=== PATIENT | male | born 1980 | race Caucasian/White ===

== ENCOUNTER 2019-07-10 17:31 | Emergency (ER) | payer BC, SELFPAY ==
--- NOTE | ~2019-07-10 | CT_ITS ---
EXAMINATION: CT abdomen pelvis w con INDICATION: Left lower quadrant pain TECHNIQUE: Computed tomographic images of the abdomen and pelvis were obtained after the administrati on of 100 cc of Omnipaque 350 intravenous contrast. The dose-length product (DLP) was 581.86 mGy-cm. Automated exposure control and iterative reconstruction technique were employed. COMPARISON: 03/26/2019 FINDINGS: The lung bases are clear. The heart size is normal. There is a small sliding hiatal hernia. There has been interval cholecystectomy. A new 1.2 cm area of low attenuation in the liver adjacent to the gallbladder fossa likely relates to cholecystectomy. The liver is otherwise normal. The spleen , pancreas, and adrenal glands are normal. The kidneys are unremarkable. No pathologically enlarged a bdominal or pelvic lymph nodes are identified. The appendix is normal. There is no free intraperitone al gas. There appears to be mild circumferential wall thickening of the duodenum. A focally dilated l oop of proximal jejunum measures up to 3.3 cm. There is mild lumbar spondylosis. IMPRESSION: 1. Apparent mild circumferential wall thickening of the duodenum and mild focal dilation of the proxi mal jejunum of unclear significance. Findings could reflect enteritis. Reviewed, dictated and finalized at location A. IMPRESSION: 1. Apparent mild circumferential wall thickening of the duodenum and mild focal dilation of the proximal jejunum of unclear significance. Findings could refle ct enteritis.
[2019-07-10 17:52] VITALS: BP 123/96; PULSE 90; RESP 16; TEMP 37.1; O2SAT 99
[2019-07-10 17:53] VITALS: O2SAT 9
[2019-07-10 19:12] VITALS: BP 130/60; PULSE 85; RESP 18; O2SAT 99
--- NOTE | 2019-07-10 19:17 | ED.NAVMDI ---
HPI - Nausea/Vomiting/Diarrhea General Chief complaint: Nausea/Vomiting/Diarrhea Stated complaint: vomiting Time Seen by Provider: 07/10/19 19:18 Source: patient Mode of arrival: ambulatory Limitations: no limitations History of Present Illness HPI Narrative: A 38 y/o male presents to the ED with c/o N/V/D since 1:30 AM yesterday. Pt states that he has had 30 episodes of vomiting and a couple episodes of diarrhea in the past 24 hours. Pt notes that he has a PMHx of hemorrhoids and he noticed some blood in his stool this morning. Pt c/o ABD cramping but states that it feels different than the pain he typically experiences with his hemorrhoids. He reports a PSHx of a cholecystectomy, but denies CP, alcohol use, sick contacts, recent foreign travel, and a PMHx of diverticulitis or diverticulosis. Pertinent past history: other (hemorrhoid) Onset (ago): day(s) (1) Quality: cramping Related Data Home Medications Medication Instructions Recorded Confirmed atorvastatin 80 mg PO HS 03/26/19 cyclobenzaprine 10 mg PO HS PRN 03/26/19 diclofenac sodium 75 mg PO BID 03/26/19 ergocalciferol (vitamin D2) 1,250 unit PO DAILY 03/26/19 gabapentin 300 mg PO TID 03/26/19 hydrocodone-acetaminophen 1 tablet PO Q6H PRN 03/26/19 hydrocortisone [Proctozone-HC] 1 applic [place] DAILY PRN 03/26/19 hydrocortisone acetate 25 mg [place] BID 03/26/19 icosapent ethyl [Vascepa] 2 g PO BID 03/26/19 lidocaine 1 applic TOPICAL BID 03/26/19 omeprazole 40 mg PO BID 03/26/19 promethazine 25 mg PO Q6H PRN 03/26/19 ranitidine HCl 300 mg PO HS 03/26/19 triamcinolone acetonide 1 applic TOPICAL BID 03/26/19 venlafaxine 37.5 mg PO DAILY 03/26/19 Allergies Allergy/AdvReac Type Severity Reaction Status Date / Time bee venom protein (honey bee) Allergy Severe Anaphylactic Verified 09/22/18 12:58 Shock Review of Systems Review of Systems: All systems reviewed & are unremarkable except as noted in HPI and below Cardiovascular: Cardiovascular: Denies chest pain Gastrointestinal: Gastrointestinal: Reports diarrhea, Reports nausea and Reports vomiting Comments: Reports: blood in stool, ABD cramping PMFSH Past Medical History Medical History (Updated 07/10/19 @ 22:07 by Rommel Yeboah MD) Back pain GERD (gastroesophageal reflux disease) Hemorrhoid History of kidney stones Hypercholesteremia Pinched nerve S5 to toes Surgical History Surgical History History of cholecystectomy Social History Social History Social History: 1 cartridge/day = 1 PPD Smoking status: Current every day smoker Tobacco type: e-cigarettes Alcohol intake: never Gender identity (if verbalized by the patient): Male Comments PCP: Dr. Avila Exam Narrative: Exam Narrative: GENERAL: Uncomfortable-appearing, well-nourished, and in no acute distress. HEAD: Normocephalic, atraumatic. ENT: Mucous membranes moist. CHEST: Clear to auscultation. No respiratory distress. HEART: Regular rate and rhythm. Normal peripheral pulses. ABDOMEN: Soft, moderate left lower quadrant tenderness and mild left upper quadrant tenderness without guarding, nondistended, normal active bowel sounds. 2 external hemorrhoids on rectal exam 1 with recent bleeding. No thrombosis. EXTREMITIES: Normal range of motion. No edema. NEURO: Alert and oriented x3. PSYCH: Normal mood and affect. Course Course Emergency Course: Patient informed of results. Feels better after fluids and antinausea medication. Discussed supportive therapy for home and patient verbalized understanding. Vital Signs Vital signs: Vital Signs Temperature 98.7 F 07/10/19 17:52 Pulse Rate 90 07/10/19 17:52 Respiratory Rate 16 07/10/19 17:52 Blood Pressure 123/96 H 07/10/19 17:52 Pulse Oximetry 99 07/10/19 17:52 Temperature 98.7 F 07/10/19 17:52 Pulse Rate 84 07/10/19 21:42 Respiratory Rate 1
[2019-07-10] MEDS: SODIUM CHLORIDE 0.9% IV 1,000 ML 999 ML IV CONT (19:28)
[2019-07-10] MEDS: MORPHINE SULFATE 4 MG/ML INJ IV PUSH (19:29)
[2019-07-10] MEDS: ONDANSETRON INJ 4 MG/2 ML VIAL IV PUSH (19:29)
[2019-07-10 19:34] LABS: Basophils Percent Auto 0.3 % (0.2-1.2); Hematocrit 52.2 % (42.0-52.0); Hemoglobin 17.8 g/dL (14.0-18.0); Immature Granulocyte Absolute 0.04 K/mm3 (0.00-0.031); Immature Granulocyte Percent A 0.3 % (0-0.5); Lymphocytes Absolute Auto 1.25 K/mm3 (0.9-3.2); Lymphocytes Percent Auto 9.3 % (18.3-44.2); Mean Corpuscular HGB Conc 34.1 g/dl (32-36); Mean Corpuscular Hemoglobin 31.1 pg (26-34); Mean Corpuscular Volume 91.3 fl (80-100); Mean Platelet Volume 11.1 fl (7.4-10.4); Monocytes Absolute Auto 0.5 K/mm3 (0.1-0.6); Monocytes Percent Auto 3.6 % (2.6-8.5); Neutrophils Absolute Auto 11.6 K/mm3 (1.3-6.7); Neutrophils Percent Auto 86.5 % (45.5-73.1); Platelet Count Result 347 k/mm3 (150-375); Red Blood Count 5.72 M/mm3 (4.6-6.20); Red Cell Distribution Width 12.6 % (11.5-14.5); White Blood Count 13.4 K/mm3 (4.5-10.0)
[2019-07-10 20:12] LABS: Alanine Aminotransferase 27 U/L (4-50); Albumin Level 4.9 g/dL (3.5-5.1); Alkaline Phosphatase 85 U/L (38-126); Aspartate Amino Transferase 25 U/L (17-59); Bilirubin,Total 0.8 mg/dL (0.2-1.3); Blood Urea Nitrogen 14 mg/dL (9-20); Calcium 9.5 mg/dL (8.4-10.2); Carbon Dioxide 27 mmol/L (22-30); Chloride 103 mmol/L (98-107); Estimated Glomerular Filt Rate > 60; Glucose 110 mg/dL (75-110); Lipase 41 U/L (23-300); Potassium 3.6 mmol/L (3.4-5.0); Sodium 137 mmol/L (137-145)
[2019-07-10 20:29] VITALS: BP 155/86; PULSE 86; RESP 18; O2SAT 97
[2019-07-10 21:42] VITALS: BP 153/91; PULSE 84; RESP 18; O2SAT 98
[2019-07-10 22:31] VITALS: BP 128/72; PULSE 82; RESP 18; TEMP 36.7; O2SAT 97
== END 2019-07-10 22:33 | disposition home or self-care (01) ==
PROVIDERS: Emergency Provider Emergency Medicine; PCP Family Medicine
DX: K52.9 Noninfective gastroenteritis and colitis, unspecified (principal); K64.4 Residual hemorrhoidal skin tags; E78.5 Hyperlipidemia, unspecified; Z87.442 Personal history of urinary calculi
CPT/HCPCS: 36415; 74177; 80053; 83690; 85025; 96361; 96374; 96375; 99284; J2270; J2405; J7030; Q9967

== ENCOUNTER 2019-07-12 11:58 | Emergency (ER) | payer BC, SELFPAY ==
--- NOTE | ~2019-07-12 | CT_ITS ---
EXAMINATION: CT abdomen pelvis w con EXAM DATE: 07/12/2019 13:58 INDICATION: Nausea vomiting diarrhea. Abdominal pain. TECHNIQUE: Spiral CT of the abdomen and pelvis was performed following intravenous injection of 100 m L Omnipaque 350. Axial, coronal and sagittal images were reviewed. The dose-length product (DLP) fo r this examination was 640.92 mGy-cm. The exposure was tailored according to patient size (auto mA e xposure control), and iterative reconstruction (ASIR) was used as additional dose reduction technique . There is no prior study for comparison. FINDINGS: The liver, spleen, adrenal glands and pancreas are unremarkable. Gallbladder is unremarkab le. No biliary obstruction. Portal and splenic veins are patent. Kidneys enhance symmetrically. T here is no hydronephrosis. The prostate is unremarkable. The bladder is unremarkable. There is no retroperitoneal or pelvic lymphadenopathy. The appendix is normal. The stomach and small bowel are unremarkable. There is mild scattered coloni c diverticulosis. There is no adjacent inflammatory change to suggest diverticulitis. No free intra peritoneal gas. The heart is normal in size. There are no pericardial or pleural effusions. The l uma bases are unremarkable. The bones are unremarkable. IMPRESSION: 1. No acute intra-abdominal findings. Reviewed, dictated and finalized at location A.
[2019-07-12 12:11] VITALS: BP 133/95; PULSE 100; RESP 18; TEMP 36.8; O2SAT 98
[2019-07-12] MEDS: ONDANSETRON INJ 4 MG/2 ML VIAL IV PUSH ×2 (12:46→14:28)
[2019-07-12] MEDS: SODIUM CHLORIDE 0.9% IV 1,000 ML 999 ML IV CONT ×2 (12:46→14:13)
[2019-07-12] MEDS: FAMOTIDINE 20 MG/2 ML VIAL IV PUSH (12:47)
--- NOTE | 2019-07-12 13:05 | ED.ABDPAIN ---
HPI - Abdominal Pain General Chief Complaint: Abdominal Pain Stated Complaint: n/v/d Time Seen by Provider: 07/12/19 12:12 Source: patient Mode of arrival: ambulatory Limitations: no limitations History of Present Illness HPI narrative: Patient is a 38-year-old male who presents with continued nausea vomiting and diarrhea for the last several days noting that he has been experiencing vomiting and diarrhea since Monday was seen in the emergency department was evaluated and sent home and continues to have vomiting diarrhea patient notes he has been taking the prescribed medications with minimal improvement denies fever melena or rectal bleeding Related Data Home Medications Medication Instructions Recorded Confirmed atorvastatin 80 mg PO HS 03/26/19 diclofenac sodium 75 mg PO BID 03/26/19 ergocalciferol (vitamin D2) 1,250 unit PO DAILY 03/26/19 gabapentin 300 mg PO TID 03/26/19 hydrocodone-acetaminophen 1 tablet PO Q6H PRN 03/26/19 hydrocortisone [Proctozone-HC] 1 applic [place] DAILY PRN 03/26/19 hydrocortisone acetate 25 mg [place] BID 03/26/19 icosapent ethyl [Vascepa] 2 g PO BID 03/26/19 lidocaine 1 applic TOPICAL BID 03/26/19 omeprazole 40 mg PO BID 03/26/19 promethazine 25 mg PO Q6H PRN 03/26/19 ranitidine HCl 300 mg PO HS 03/26/19 triamcinolone acetonide 1 applic TOPICAL BID 03/26/19 venlafaxine 37.5 mg PO DAILY 03/26/19 armodafinil mg PO 07/12/19 Allergies Allergy/AdvReac Type Severity Reaction Status Date / Time bee venom protein (honey bee) Allergy Severe Anaphylactic Verified 07/12/19 12:18 Shock Review of Systems Review of Systems: All systems reviewed & are unremarkable except as noted in HPI and below PMFSH Past Medical History Medical History Back pain GERD (gastroesophageal reflux disease) Hemorrhoid History of kidney stones Hypercholesteremia Pinched nerve S5 to toes Surgical History Surgical History History of cholecystectomy Social History Social History Social History: 1 cartridge/day = 1 PPD Smoking status: Current every day smoker Tobacco type: e-cigarettes Alcohol intake: never Gender identity (if verbalized by the patient): Male Exam Narrative: Exam Narrative: GENERAL: Well-appearing, well-nourished, and in no acute distress. HEAD: Normocephalic, atraumatic. EYES: PERRLA and EOMI. ENT: Nares clear, no rhinorrhea or epistaxis. Mucous membranes moist. CHEST: Clear to auscultation. No respiratory distress. No wheezes rales or rhonchi HEART: Regular rate and rhythm. No murmur heard. Normal peripheral pulses. ABDOMEN: Soft, nontender, nondistended EXTREMITIES: Normal range of motion. No edema. SKIN: Warm, dry, no rash. NEURO: No focal deficits. Alert and oriented x3. PSYCH: Normal mood and affect. Course Course Emergency Course: Patient is a 38-year-old male who presents to emergency department for evaluation of nausea and vomiting which has improved while in the emergency department was hydrated patient is tolerating p.o. intake. . Patient was given potassium replacement in the emergency department. Patient was provided with reasons to return and agrees to do so if symptoms worsen Vital Signs Vital signs: Vital Signs Temperature 98.2 F 07/12/19 12:11 Pulse Rate 100 07/12/19 12:11 Respiratory Rate 18 07/12/19 12:11 Blood Pressure 133/95 H 07/12/19 12:11 Pulse Oximetry 98 07/12/19 12:11 Temperature 98.2 F 07/12/19 12:11 Pulse Rate 76 07/12/19 13:56 Respiratory Rate 18 07/12/19 13:56 Blood Pressure 140/85 07/12/19 13:56 Pulse Oximetry 98 07/12/19 12:11 MDM - Abdominal Pain MDM Narrative Medical decision making narrative: Patient in the room in no distress aware of case findings treatment plan and diagnosis agreeing to follow-up as directed or t
[2019-07-12 13:14] LABS: Basophils Absolute Auto 0.1 K/mm3 (0.0-0.1); Basophils Percent Auto 0.3 % (0.2-1.2); Eosinophils Percent Auto 0.1 % (0-4.4); Hematocrit 53.8 % (42.0-52.0); Hemoglobin 18.8 g/dL (14.0-18.0); Immature Granulocyte Absolute 0.06 K/mm3 (0.00-0.031); Immature Granulocyte Percent A 0.4 % (0-0.5); Lymphocytes Absolute Auto 3.21 K/mm3 (0.9-3.2); Lymphocytes Percent Auto 21.3 % (18.3-44.2); Mean Corpuscular HGB Conc 34.9 g/dl (32-36); Mean Corpuscular Hemoglobin 31.1 pg (26-34); Mean Corpuscular Volume 88.9 fl (80-100); Mean Platelet Volume 10.6 fl (7.4-10.4); Monocytes Absolute Auto 1.3 K/mm3 (0.1-0.6); Monocytes Percent Auto 8.9 % (2.6-8.5); Neutrophils Absolute Auto 10.4 K/mm3 (1.3-6.7); Platelet Count Result 365 k/mm3 (150-375); Red Blood Count 6.05 M/mm3 (4.6-6.20); Red Cell Distribution Width 12.4 % (11.5-14.5); White Blood Count 15.1 K/mm3 (4.5-10.0)
[2019-07-12 13:27] LABS: Alanine Aminotransferase 35 U/L (4-50); Albumin Level 5.4 g/dL (3.5-5.1); Alkaline Phosphatase 105 U/L (38-126); Aspartate Amino Transferase 35 U/L (17-59); Bilirubin,Total 1.5 mg/dL (0.2-1.3); Blood Urea Nitrogen 25 mg/dL (9-20); Calcium 10.3 mg/dL (8.4-10.2); Carbon Dioxide 20 mmol/L (22-30); Chloride 98 mmol/L (98-107); Estimated CRCL calculation 75 ml/min; Estimated Glomerular Filt Rate > 60; Glucose 120 mg/dL (75-110); Lipase 86 U/L (23-300); Potassium 2.9 mmol/L (3.4-5.0); Sodium 135 mmol/L (137-145)
--- NOTE | 2019-07-12 13:41 | PC.NURSE ---
pt aware that urine specimen required
[2019-07-12 13:56] VITALS: BP 140/85; PULSE 76; RESP 18
[2019-07-12 14:50] LABS: Magnesium 2.2 mg/dL (1.6-2.3)
[2019-07-12 14:51] LABS: Lactic Acid Reflex 1.3 mmol/L (0.7-2.1)
[2019-07-12 16:45] VITALS: BP 157/99; PULSE 77; RESP 16; O2SAT 98
--- NOTE | 2019-07-12 16:50 | PC.NURSE ---
Patient requesting pain medication for chronic back pain, Chau SANTAMARIA aware.
[2019-07-12 16:51] LABS: Add Urine Microscopic? YES; Appearance Urine Clear (Clear); Bilirubin Urine Negative (Negative); Blood Urine Negative (Negative); Color Urine Straw (Yellow); Glucose Urine UA Negative (Negative); Ketones Urine 1+ mg/dL (Negative); Leukocyte Esterase Ur Negative LEU/UL (Negative); Mucus Urine Rare /lpf; Nitrate Urine Negative (Negative); Protein Urine 1+ mg/dL (Negative); RBC Urine 0-2 /hpf (0-2); Urobilinogen Urine Negative mg/dL (<2.0); WBC Urine 0-3 /hpf
[2019-07-12 16:56] LABS: Specific Grav Ur > 1.060 (1.001-1.035)
[2019-07-12] MEDS: KETOROLAC 15 MG/ML VIAL (*BKC) IV PUSH (16:57)
[2019-07-12] MEDS: SODIUM CHLORIDE 0.9% IV 1,000 ML 500 ML (16:57)
[2019-07-12 19:34] VITALS: BP 133/76; PULSE 88; RESP 19; TEMP 36.8; O2SAT 100
== END 2019-07-12 19:35 | disposition home or self-care (01) ==
PROVIDERS: Emergency Medicine Emergency Medical Services; Emergency Provider Emergency Medicine; PCP Family Medicine
DX: R10.9 Unspecified abdominal pain (principal); K21.9 Gastro-esophageal reflux disease without esophagitis; Z87.442 Personal history of urinary calculi; E78.00 Pure hypercholesterolemia, unspecified; F17.290 Nicotine dependence, other tobacco product, uncomplicated; G58.8 Other specified mononeuropathies
CPT/HCPCS: 36415; 74177; 80053; 81001; 83605; 83690; 83735; 85025; 96365; 96366; 96368; 96375; 96376; 99284; J0131; J1885; J2405; J3480; J7030; Q9967

== ENCOUNTER 2019-10-13 18:37 | Emergency (ER) | payer BC, SELFPAY ==
[2019-10-13] VITALS (7 sets, daily range): BP systolic 145–172; BP diastolic 91–108; PULSE 83–119; RESP 16–18; TEMP 37.8; O2SAT 98–100
[2019-10-13 18:57] LABS: Basophils Absolute Auto 0.1 K/mm3 (0.0-0.1); Basophils Percent Auto 0.4 % (0.2-1.2); Hematocrit 56.3 % (42.0-52.0); Hemoglobin 19.7 g/dL (14.0-18.0); Immature Granulocyte Absolute 0.06 K/mm3 (0.00-0.031); Immature Granulocyte Percent A 0.4 % (0-0.5); Lymphocytes Absolute Auto 1.65 K/mm3 (0.9-3.2); Lymphocytes Percent Auto 10.8 % (18.3-44.2); Mean Corpuscular Hemoglobin 31.7 pg (26-34); Mean Corpuscular Volume 90.7 fl (80-100); Monocytes Absolute Auto 0.7 K/mm3 (0.1-0.6); Monocytes Percent Auto 4.3 % (2.6-8.5); Neutrophils Absolute Auto 12.8 K/mm3 (1.3-6.7); Neutrophils Percent Auto 84.1 % (45.5-73.1); Platelet Count Result 330 k/mm3 (150-375); Red Blood Count 6.21 M/mm3 (4.6-6.20); Red Cell Distribution Width 12.8 % (11.5-14.5); White Blood Count 15.2 K/mm3 (4.5-10.0)
--- NOTE | 2019-10-13 19:14 | ED.NAVMDI ---
HPI - Nausea/Vomiting/Diarrhea General Chief complaint: Nausea/Vomiting/Diarrhea Stated complaint: vomiting, weakness Time Seen by Provider: 10/13/19 18:55 Source: patient Mode of arrival: ambulatory Limitations: no limitations History of Present Illness HPI Narrative: This patient is a 39 year old male who presents for evaluation of nausea and vomiting. Patient states starting Monday evening he starting having multiple episodes of bilious vomiting. He is continuing to have vomiting today. He denies abdominal pain or diarrhea. He states he feels weak due to his vomiting. He denies fever or chills. This is his 3rd episodes of vomiting in the past 6 months. He has had multiple CT scans, upper GI and colonoscopy and he states they have been unable to find a cause. He is out of his anti nausea medication. He also complains of anxiety. MD elicited complaint: nausea and vomiting Related Data Home Medications Medication Instructions Recorded Confirmed atorvastatin 80 mg PO HS 03/26/19 diclofenac sodium 75 mg PO BID 03/26/19 ergocalciferol (vitamin D2) 1,250 unit PO DAILY 03/26/19 gabapentin 300 mg PO TID 03/26/19 hydrocodone-acetaminophen 1 tablet PO Q6H PRN 03/26/19 hydrocortisone [Proctozone-HC] 1 applic [place] DAILY PRN 03/26/19 hydrocortisone acetate 25 mg [place] BID 03/26/19 icosapent ethyl [Vascepa] 2 g PO BID 03/26/19 lidocaine 1 applic TOPICAL BID 03/26/19 omeprazole 40 mg PO BID 03/26/19 promethazine 25 mg PO Q6H PRN 03/26/19 ranitidine HCl 300 mg PO HS 03/26/19 triamcinolone acetonide 1 applic TOPICAL BID 03/26/19 venlafaxine 37.5 mg PO DAILY 03/26/19 armodafinil mg PO 07/12/19 Allergies Allergy/AdvReac Type Severity Reaction Status Date / Time bee venom protein (honey bee) Allergy Severe Anaphylactic Verified 10/13/19 18:45 Shock Review of Systems Review of Systems: All systems reviewed & are unremarkable except as noted in HPI and below Constitutional: Constitutional: Denies chills, Denies fever(s) and Reports weakness Cardiovascular: Cardiovascular: Denies chest pain and Denies radiating jaw, neck or arm pain Respiratory: Respiratory: Reports cough (chronic from smoking) and Denies dyspnea Gastrointestinal: Gastrointestinal: Denies diarrhea, Reports nausea and Reports vomiting Musculoskeletal: Musculoskeletal: Denies back pain Psychiatric: Psychiatric: Reports anxiety PMFSH Social History Social History Social History: 1 cartridge/day = 1 PPD Smoking status: Current every day smoker Tobacco type: e-cigarettes/vaping Alcohol intake: never Gender identity (if verbalized by the patient): Male Exam Narrative: Exam Narrative: GENERAL: Well-appearing, well-nourished, and in no acute distress. HEAD: Normocephalic, atraumatic EYES: PERRLA and EOMI, conjunctiva clear without discharge EARS: TM's clear bilaterally without erythema or dullness NOSE: Nares clear, no rhinorrhea or epistaxis THROAT:Mucous membranes moist, Oropharynx normal without erythema, exudate, peritonsillar swelling or fluctuance NECK: Supple, without lymphadenopathy or mass RESPIRATORY: No respiratory distress, Airway patent, Respirations non-labored, Clear to auscultation without rales, rhonchi or wheeze HEART: Regular rate and rhythm. No murmur heard. Normal peripheral pulses. ABDOMEN: Soft, nontender, nondistended, normal active bowel sounds. No masses. No rebound or guarding, No organomegaly. EXTREMITIES: No edema, normal strength with full range of motion. SKIN: Warm, dry, normal color without rash NEURO: Alert and oriented x3. CN 2-12 grossly intact. No focal deficits. PSYCH: Normal mood and affect. Course Reevaluation(s) Reevaluation #1: Patient states he feels better and he was able to tolerate PO . I reviewed labs and he has leukocytosis which was present last hospitalization . I Do not believe he needs additional imaging. Date:
[2019-10-13 19:21] LABS: Alanine Aminotransferase 27 U/L (4-50); Albumin Level 5.4 g/dL (3.5-5.1); Alkaline Phosphatase 123 U/L (38-126); Aspartate Amino Transferase 35 U/L (17-59); Bilirubin,Total 1.1 mg/dL (0.2-1.3); Blood Urea Nitrogen 18 mg/dL (9-20); Carbon Dioxide 26 mmol/L (22-30); Chloride 97 mmol/L (98-107); Estimated CRCL calculation 107 ml/min; Estimated Glomerular Filt Rate > 60; Glucose 143 mg/dL (75-110); Lipase 60 U/L (23-300); Potassium 3.7 mmol/L (3.4-5.0); Sodium 135 mmol/L (137-145)
[2019-10-13] MEDS: LACTATED RINGERS 1,000 ML 999 ML IV CONT ×2 (19:50→19:51)
[2019-10-13] MEDS: LORAZEPAM INJ 2 MG/ML VIAL 0.5 MG IV PUSH (19:51)
[2019-10-13] MEDS: ONDANSETRON INJ 4 MG/2 ML VIAL IV PUSH (19:51)
[2019-10-13] MEDS: PANTOPRAZOLE SODIUM IV 40 MG VIAL IV PUSH (19:51)
[2019-10-13 19:59] LABS: Add Urine Microscopic? YES; Appearance Urine Clear (Clear); Bacteria Urine Trace /hpf; Bilirubin Urine Negative (Negative); Blood Urine 1+ (Negative); Color Urine Yellow (Yellow); Glucose Urine UA Negative (Negative); Ketones Urine 1+ mg/dL (Negative); Leukocyte Esterase Ur Negative LEU/UL (Negative); Mucus Urine Heavy /lpf; Nitrate Urine Negative (Negative); Protein Urine 2+ mg/dL (Negative)
[2019-10-13 20:00] LABS: Specific Grav Ur 1.031 (1.001-1.035)
== END 2019-10-13 22:23 | disposition home or self-care (01) ==
PROVIDERS: Emergency Provider General Practice; PCP Family Medicine
DX: R11.2 Nausea with vomiting, unspecified (principal); E86.0 Dehydration; F17.290 Nicotine dependence, other tobacco product, uncomplicated
CPT/HCPCS: 36415; 80053; 81001; 83690; 85025; 96361; 96374; 96375; 99284; C9113; J2060; J2405; J7120